=== PATIENT | female | born 1960 | race Caucasian/White ===

== ENCOUNTER → 2024-02-04 12:29 | Outpatient (CLI) | payer OTHER, SELFPAY ==
--- NOTE | 2024-02-04 12:32 | DI.CT.S_ITS ---
PROCEDURE: CT LUMBAR SPINE WO CON INDICATIONS: SPINAL STENOSIS, LUMBAR REGION TECHNIQUE: Noncontrast 3 mm thick sections acquired from the T12 level to the sacrum. Sagittal and coronal reformats were constructed. For radiation dose reduction, the following was used: automated exposure control. [facility], CR, XR LUMBAR SPINE 2 OR 3 VIEWS, 12/23/2023, 15:49. [facility] Outside Film, MR, MR CERVICAL SPINE WITHOUT CONTRAST, 11/29/2023, 10:53. [facility] Outside Film, MR, MR LUMBAR SPINE WITHOUT CONTRAST, 11/29/2023, 10:53. FINDINGS: Image quality: Excellent. Bones: Lumbosacral transitional anatomy is present. Rudimentary ribs are present at T12. There are 5 lumbar type vertebral bodies. There is a left L5-S1 pseudoarthrosis (08/08). Diffuse osseous demineralization. The vertebral body heights are preserved. There is hypertrophy of the L2-L5 spinous processes. There is multilevel moderate facet arthropathy, most conspicuous at the L3-L4 and L4-L5 levels. Mild bilateral sacroiliac joint osteoarthritis (). Alignment: The lumbar lordosis is preserved. Discs: Multilevel disc bulging is present with severe intervertebral disc height loss and endplate sclerosis with Schmorl's node formation and vacuum cleft phenomenon at the L3-L4 level (6/29). There is a concentric disc bulge at the L3-L4 level (4/52) with severe disc height loss. Additional severe disc height loss is present at the T12-L1 level. Central canal: Although the epidural space is not well assessed on CT, severe central canal stenosis is present at the L3-L4 level secondary to the disc bulge, ligamentum flavum hypertrophy, and facet arthropathy. Neural foramina: There is moderate-severe right L3-L4 foraminal stenosis (7/36) and mild left foraminal stenosis at the L3-L4 and L4-L5 levels. Prevertebral soft tissues: No abdominal aortic aneurysm. Mild aortoiliac atherosclerosis. Partially identified left renal exophytic simple cyst (4/11). Status post cholecystectomy. No prevertebral soft tissue edema or abnormal contours of the psoas major muscles. Mild lower paraspinal muscle atrophy (72). IMPRESSION: 1. Severe central canal stenosis at L3-L4 with disc height loss and endplate degeneration. 2. Moderate-severe right L3-L4 foraminal stenosis. 3. 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 4. Lumbosacral transitional anatomy. Dictated by: Calvin Rao M.D. on 02/05/2024 at 10:47 Approved by: Calvin Rao M.D. on 02/05/2024 at 11:01
== END ==
PROVIDERS: PCP Registered Nurse; Referring Provider Orthopaedic Surgery Orthopaedic Surgery of the Spine; Visit Provider Orthopaedic Surgery Orthopaedic Surgery of the Spine
DX: M48.062 Spinal stenosis, lumbar region with neurogenic claudication (principal); M47.816 Spondylosis without myelopathy or radiculopathy, lumbar region; M47.818 Spondylosis without myelopathy or radiculopathy, sacral and sacrococcygeal region; M51.369 Other intervertebral disc degeneration, lumbar region without mention of lumbar back pain or lower extremity pain
CPT/HCPCS: 72131

== ENCOUNTER → 2024-03-11 12:40 | Outpatient (CLI) | payer OTHER, SELFPAY ==
--- NOTE | 2024-03-11 12:43 | DI.CT.S_ITS ---
PROCEDURE: CT LUMBAR SPINE WO CON INDICATIONS: LUMBAR SPONDYLOLISTHIESIS AND STENOSIS TECHNIQUE: Noncontrast 3 mm thick sections acquired from the T12 level to the sacrum. Sagittal and coronal reformats were constructed. For radiation dose reduction, the following was used: automated exposure control. COMPARISON: [facility], CT, CT LUMBAR SPINE WO CON, 02/04/2024, 12:41. FINDINGS: Transitional anatomy noted. Numbering convention adopted on the prior study assumes rudimentary ribs at T12 and partial sacralization of L5. Degenerative endplate changes, facet arthropathy and degenerative disc disease is again noted, unchanged from the prior exam 01/2024. Trace degenerative grade 1 anterior spondylolisthesis noted at L4-5, also similar IMPRESSION: Degenerative disc disease and arthropathy remains entirely unchanged and well described on the prior report 01/2024. Please refer to that report for further details of multilevel stenosis. Of note, transitional anatomy is present. Approved by: Zac Moreno M.D. on 03/12/2024 at 10:41
== END ==
PROVIDERS: PCP Registered Nurse; Referring Provider Orthopaedic Surgery Orthopaedic Surgery of the Spine; Visit Provider Orthopaedic Surgery Orthopaedic Surgery of the Spine
DX: M48.061 Spinal stenosis, lumbar region without neurogenic claudication (principal); M43.16 Spondylolisthesis, lumbar region; M51.369 Other intervertebral disc degeneration, lumbar region without mention of lumbar back pain or lower extremity pain; M47.816 Spondylosis without myelopathy or radiculopathy, lumbar region
CPT/HCPCS: 72131

== ENCOUNTER → 2025-02-17 13:07 | Outpatient (CLI) | payer MEDICARE, OTHER, SELFPAY ==
--- NOTE | 2025-02-17 13:11 | DI.CT.S_ITS ---
PROCEDURE: CT LUMBAR SPINE WO CON INDICATIONS: Assess lt L 5 TECHNIQUE: Noncontrast 3 mm thick sections acquired from the T12 level to the sacrum. Sagittal and coronal reformats were constructed. For radiation dose reduction, the following was used: automated exposure control. COMPARISON: [facility], CT, CT LUMBAR SPINE WO CON, 03/11/2024, 12:49. [facility], CT, CT LUMBAR SPINE WO CON, 02/04/2024, 12:41. [facility], CR, XR LUMBAR SPINE 2 OR 3 VIEWS, 12/23/2023, 15:49. [facility] Outside Film, MR, MR LUMBAR SPINE WITHOUT CONTRAST, 11/29/2023, 10:53. FINDINGS: Image quality: Excellent. Bones: No acute vertebral body compression fractures. No suspicious lytic or blastic bony lesions. No pars defects. Postoperative changes are seen, with bilateral pedicle screws at the L3, L4, and L5 levels. The screws appear well placed. There is lucency seen adjacent to the L5 screws. Vertical fixation rods are seen. There is a disc spacer seen at the L3-L4 level. There has been removal of portions of the posterior elements. Bone grafting material is noted. Minimal retrolisthesis can be seen at T12-L1. Mild grade 1 anterolisthesis is seen at the L3-L4 level. T12-L1: There is at least moderate loss of disc height. Endplate irregularity and sclerosis can be seen. Moderate disc bulge is seen, which is eccentric to the left. There is moderate left-sided and no right-sided neural foraminal narrowing. No central canal narrowing is seen. Stable from the prior study. L1-L2: The disc height is well preserved. Mild to moderate disc bulge is seen which is eccentric to the left. There is a left foraminal disc protrusion. Moderate bilateral neural foraminal narrowing is seen. Moderate central canal narrowing is seen. Stable from the prior study. L2-L3: The disc height is well preserved. Moderate disc bulge is seen which is eccentric to the left. There is a superimposed central disc protrusion. At least moderate facet hypertrophy is seen. There is at least moderate left-sided and moderate right-sided neural narrowing. At least moderate central canal narrowing is seen. No significant change from the prior. L3-L4: Mild generalized disc bulge is seen. Moderate facet joint hypertrophy is seen. There is mild left-sided and moderate right-sided neural narrowing. No central canal narrowing is seen. This level is improved compared to the preoperative CT. L4-L5: There is postoperative change at this level. At least moderate disc bulge is seen. There is a superimposed central disc protrusion. At least moderate facet hypertrophy is seen. There is at least moderate bilateral neural foraminal narrowing. At least moderate central canal narrowing is seen. The degrees of degenerative narrowing at this level are improved compared to the preoperative CT. L5-S1: Mild loss of disc height is seen. Mild to moderate disc bulge is seen. Moderate facet joint hypertrophy is seen. Moderate bilateral neural foraminal narrowing is seen, right worse than left. Mild central canal narrowing is seen. Soft tissues: No retroperitoneal masses or hematomas. Visualized aorta is normal in caliber. Cholecystectomy clips are seen. IMPRESSION: L3 through L5 postoperative hardware. There is lucency seen adjacent to the L5 screws which is consistent with hardware loosening. The hardware otherwise is unremarkable. There is improvement in the degrees of degenerative narrowing at L3-L4 and L4-L5 compared to the preoperative CT. Dictated by: Bennett Rdz M.D. on 02/17/2025 at 16:20 Approved by: Bennett Rdz M.D. on 02/17/2025 at 16:26
== END ==
PROVIDERS: PCP Registered Nurse; Referring Provider Orthopaedic Surgery; Visit Provider Orthopaedic Surgery
DX: M51.16 Intervertebral disc disorders with radiculopathy, lumbar region (principal); M47.26 Other spondylosis with radiculopathy, lumbar region; M51.17 Intervertebral disc disorders with radiculopathy, lumbosacral region; M47.27 Other spondylosis with radiculopathy, lumbosacral region; M43.16 Spondylolisthesis, lumbar region; M48.061 Spinal stenosis, lumbar region without neurogenic claudication; M48.07 Spinal stenosis, lumbosacral region; Z98.1 Arthrodesis status
CPT/HCPCS: 72131

== ENCOUNTER → 2025-02-23 13:43 | Outpatient (CLI) | payer MEDICARE, OTHER, SELFPAY ==
--- NOTE | 2025-02-23 13:44 | DI.ECHO.S_ITS ---
[facility] +---------+ [facility] : : [address] : : [place] : : [id number] : : Phone: [phone] Echocardiogram Report + + :Name: JAY TOWNSEND Study Date: 02/23/2025 Height: 69 in : :[facility] ReadingLocation: Weight: 185 lb : : Gender: Female BSA: 2.0 m2 : :: 1960 Age: 64 yrs BP: 119/76 mmHg: :Reason For Study: CHEST PAIN : :Ordering Physician: CHRISTINE SEGOVIA Performed By: Gilbert Leigh : :Referring: CHRISTINE SEGOVIA : + + Interpretation Summary - Normal LV contractility with EF >55% with no WMA. No LVH. Normal diastolic function. - Normal RV contractility. - Normal chamber sizes. - No significant valvular abnormalities. - No obvious intracardiac shunts. - No obvious intracardiac masses/thrombi. - No hemodynamically significant pericardial effusion. - Low right sided filling pressures. Conclusion: Normal biventricular function without significant valvular abnormalities. Procedure: A two-dimensional transthoracic echocardiogram with color flow and Doppler was performed. The study quality was technically good. There is no prior echocardiogram noted for this patient. The patient was in normal sinus rhythm during the exam. Left Ventricle: The left ventricle is normal in size. There is normal left ventricular wall thickness. There is no ventricular septal defect visualized. The ejection fraction is estimated to be 55-60%. There are no focal wall motion abnormalities. Normal diastolic function. Right Ventricle: The right ventricle is normal in size and function. Atria: The left atrial size is normal. Right atrial size is normal. There is no Doppler evidence for an interatrial shunt. Mitral Valve: There is mild mitral annular calcification. The mitral valve leaflets are mildly calcified. There is trace mitral regurgitation. Aortic Valve: The aortic valve is trileaflet. The aortic valve opens well. No aortic regurgitation is present. Tricuspid Valve: The tricuspid valve leaflets are thin and pliable. There is trace tricuspid regurgitation. Pulmonic Valve: The pulmonic valve is not well seen, but is grossly normal. There is trace pulmonic regurgitation. Great Vessels: The aortic root is normal size. The dimensions of the ascending aorta are normal. The pulmonary artery is normal size. The IVC is of normal diameter and collapses greater than 50% with a sniff. This suggests a low right atrial pressure of 3 mm Hg. Pericardium/ Pleura There is no pericardial effusion. There is no pleural effusion. MMode/2D Measurements & Calculations LVIDd: 4.8 cm LVOT diam: 1.9 cm LVIDs: 3.4 cm Ao root diam: 3.1 cm FS: 29.5 % asc Aorta Diam: 3.2 cm EPSS: 0.72 cm IVSd: 0.92 cm LVPWd: 0.89 cm LV nelson. diameter/BSA (cm/m^2): 2.4 LV sys. diameter/BSA (cm/m^2): 1.7 LA A2 area: 21.2 cm2 RA long axis: 4.9 cm LA A4 area: 16.2 cm2 RA area: 16.1 cm2 LA length (vol): 4.8 cm RA vol: 44.9 ml LA vol: 59.9 ml RA : 22.4 ml/m2 LA vol index: 30.0 ml/m2 IVC diam: 1.8 cm RVD1 (basal): 3.6 cm RVD2 (mid): 2.7 cm TAPSE: 2.7 cm Doppler Measurements & Calculations Ao V2 max: 108.8 cm/sec LVOT Max Eris: 97.1 cm/sec Ao V2 mean: 81.7 cm/sec LV V1 max P.8 mmHg Ao max P.7 mmHg LV V1 VTI: 21.0 cm Ao mean P.9 mmHg KRISTEN(I,D): 2.5 cm2 Ao V2 VTI: 24.3 cm KRISTEN(V,D): 2.6 cm2 sev ratio: 0.87 KRISTEN indexed to BSA (cm^2/m^2): 1.3 MV E max eris: 77.6 cm/sec TR max eris: 240.5 cm/sec MV A max eris: 85.5 cm/sec TR max P.1 mmHg MV E/A: 0.91 PA V2 max: 82.1 cm/sec Med Peak E' Eris: 7.3 cm/sec PA V2 mean: 61.2 cm/sec E/E' med: 10.7 PA mean P.6 mmHg Lat Peak E' Eris: 9.5 cm/sec PA pr(Accel): 39.6 mmHg E/E' lat: 8.2 E/e' average: 9.4 MV dec time: 0.21 sec SV(LVOT): 60.7 ml Reading Physician:CASSIUS
--- NOTE | 2025-02-28 08:41 | DI.NM.S_ITS ---
DATE OF SERVICE: 02/23/2025 PROCEDURE: Exercise stress test. INDICATIONS: Intermittent chest pain, shortness of breath, diabetes mellitus, hypertension, hyperlipidemia. CARDIAC STRESS: The patient underwent exercise stress test under the supervision of attending staff. The patient walked on Pete protocol for 7 minutes. Achieved maximum heart rate of 162, which was 105% of target heart rate. Resting blood pressure 128/72 and peak blood pressure 192/88. -11%. Baseline rhythm sinus. During stress, no convincing ischemic EKG changes seen. Some nonspecific ST-T changes. No significant arrhythmias other than some PACs. No chest pain or anginal symptoms. The patient had some shortness of breath. Overall normal recovery. CONCLUSION: Exercise stress test did not reveal any convincing ischemic changes. Fair exercise tolerance. Normal hemodynamic response. [____] symptoms. No complex arrhythmias. Overall, low-risk exercise stress test. 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
== END ==
LOC: ECHO 13:44
PROVIDERS: PCP Registered Nurse; Referring Provider Internal Medicine; Visit Provider Internal Medicine
DX: I34.81 Nonrheumatic mitral (valve) annulus calcification (principal); R07.9 Chest pain, unspecified
CPT/HCPCS: 93017; 93306